=== PATIENT | male | born 1990 | race Asian ===

== ENCOUNTER → 2023-08-11 19:17 | Outpatient (CLI) | payer OTHER, SELFPAY ==
--- NOTE | 2023-08-11 19:20 | DI.MRI.S_ITS ---
PROCEDURE: MR KNEE RT WO CON INDICATIONS: RIGHT KNEE PAIN TECHNIQUE: Noncontrast sagittal PD fast spin echo and T2 fast spin echo with fat saturation, sagittal 3-D FLASH with fat saturation; coronal T1 spin echo and PD fast spin echo with fat saturation, and axial PD fast spin echo with fat saturation through the knee. COMPARISON: None. FINDINGS: Image quality: Excellent. Menisci: The medial and lateral menisci demonstrate normal morphology and internal signal. The meniscal root ligaments appear intact. Cruciate ligaments: There is prior ACL repair with postsurgical changes. ACL graft is intact. The PCL is intact. Medial structures: The medial collateral ligament appears intact. Visualized portions of the pes anserinus tendons appear normal. No abnormal bursal fluid. Lateral structures: The lateral collateral ligament, long and short heads of the biceps femoris tendon appear intact. The popliteus tendon appears normal. Iliotibial band appears normal. Anterior structures: Distal quadriceps tendinosis at its superior patellar insertion is seen. Distal patellar tendinosis at its anterior tibial insertion is also noted. Patellar alignment is normal. No femoral trochlear dysplasia or ventral trochlear prominence. No edema in the infrapatellar fat pad. Bones and cartilage: Postsurgical changes are noted in lateral femoral condyle and medial aspect of proximal tibia. No signal abnormality is seen within the tibial tunnel or femoral tunnel. No gross marrow edema. No fracture or dislocation. Articulating cartilages normal in thickness. Joint space: There is small knee joint fluid. No Wooten's cyst. Normal appearing synovial plicae are incidentally noted. IMPRESSION: 1. Prior ACL repair with postsurgical changes. No marrow edema. No fracture or dislocation. Small joint effusion, no loose bodies. 2. ACL graft is intact. PCL is intact. 3. No evidence of focal meniscal tear. 4. Distal quadriceps tendinosis. Distal patellar tendinosis at its anterior tibial insertion. No full-thickness tendon rupture. Dictated by: Octavio Gallo M.D. on 08/12/2023 at 11:37 Approved by: Octavio Gallo M.D. on 08/12/2023 at 11:40
== END ==
DX: M25.461 Effusion, right knee (principal); M25.561 Pain in right knee; Z98.890 Other specified postprocedural states
CPT/HCPCS: 73721